=== PATIENT | male | born 1955 | race African-American/Black ===

== ENCOUNTER 2017-03-12 05:04 | Emergency (ER) | payer BC ==
[~2017-03-12] VITALS: Ht 177.8 cm; Wt 81.8 kg
[~2017-03-12 05:04] MED LIST: AMOXICILLIN 8751 TAB PO; CLARITIN 1010 MG/TAB PO; COLACE 100100 MG/CAP PO; MILK OF MA400 MG/5 M PO; NORCO 325 MG-51 TAB PO
[2017-03-12 05:07] VITALS: TEMP 97.9
[2017-03-12] MEDS ORDERED: PRINZIDE 12.5 M1 TA1 PO (05:30)
[2017-03-12] MEDS ORDERED: VIAGRA100 M1 (05:30)
[2017-03-12] MEDS ORDERED: ULTRAM 50MG TAB50 MG PO (06:24)
[2017-03-12 06:34] VITALS: BP 135/95; PULSE 74
== END 2017-03-12 06:35 | disposition home or self-care (01) ==
LOC: COL.ER 05:04
DX: T18.5XXA Foreign body in anus and rectum, initial encounter (principal); I10 Essential (primary) hypertension

== ENCOUNTER 2020-04-27 07:50 | Day surgery (SDC) | payer BC, OTHER ==
[~2020-04-27] VITALS: Ht 152.4 cm; Wt 82.5 kg
[~2020-04-27 07:50] MED LIST changes: +PRINZIDE 12.5 M1 TA1 PO; +ULTRAM 50MG TAB50 MG PO; +VIAGRA100 M1
[2020-04-27] MEDS ORDERED: AVAPRO300 M1 PO (08:07)
[2020-04-27] MEDS ORDERED: LIPITOR 10MG10 MG PO (08:07)
[2020-04-27] MEDS ORDERED: LIPITOR 40MG TA40 MG PO (08:08)
[2020-04-27 09:29] VITALS: BP 126/98; PULSE 64; TEMP 97
--- NOTE | 2020-04-27 09:29 | NUR ---
Pt returns from endo procedure via cart. Pt ambulates with RN assist from cart to recliner. Pt alert and oriented. Pt denies pain or nausea. Monitors on and alarms set. Call light within reach. Pt requests pudding and juice. Report received from SANDER Rooney.
[2020-04-27 09:45] VITALS: BP 138/96; PULSE 57
--- NOTE | 2020-04-27 09:45 | NUR ---
Pt taking food and drink well. No complications voiced.
[2020-04-27 10:00] VITALS: BP 153/91; PULSE 59
[2020-04-27 10:15] VITALS: BP 132/86; PULSE 56
--- NOTE | 2020-04-27 10:26 | NUR ---
Discharge instructions given. Handed to pt are a thank you card, discharge instructions, and a discharge med sheet. All questions answered to his satisfaction.
--- NOTE | 2020-04-27 10:30 | NUR ---
Pt transferred out of hospital via wheelchair and this RN to private vehicle driven by friend.
[2020-04-27 18:56] VITALS: BP 134/94; PULSE 64; TEMP 98.6
== END 2020-04-27 10:30 | disposition home or self-care (01) ==
LOC: SDCO 07:50
DX: Z12.11 Encounter for screening for malignant neoplasm of colon (principal); I10 Essential (primary) hypertension; K57.30 Diverticulosis of large intestine without perforation or abscess without bleeding; E29.1 Testicular hypofunction; Z20.822 Contact with and (suspected) exposure to COVID-19; Z79.899 Other long term (current) drug therapy
CPT/HCPCS: J2704; J3010; J7030

== ENCOUNTER 2021-03-10 17:09 | Emergency (ER) | payer BC ==
[~2021-03-10] VITALS: Ht 175.3 cm; Wt 84.1 kg
[~2021-03-10 17:09] MED LIST changes: +AVAPRO300 M1 PO; +LIPITOR 10MG10 MG PO; +LIPITOR 40MG TA40 MG PO
[2021-03-10 17:18] VITALS: TEMP 98.2
[2021-03-10 17:44] LABS: BASO % 0.2 % (0.0-2.0); EOS # 0.1 K/mm3 (0.0-0.7); EOS % 1.1 % (0.0-4.0); GRAN # 5.4 K/mm3 (1.4-6.5); GRAN % 64.9 % (42.2-75.2); HEMATOCRIT 47.6 % (42.0-52.0); HEMOGLOBIN 15.6 g/dl (13.5-18.0); LYMPH # 1.9 K/mm3 (1.2-3.4); LYMPH % 22.9 % (20.0-51.0); MEAN CELL VOLUME 89 fl (80.0-100.0); MEAN CORPUSCULAR HEMOGLOBIN 29 pg (27-31); MEAN CORPUSCULAR HGB CONC 33 g/dl (33.0-37.0); MEAN PLATELET VOLUME 9.7 fl (7.4-10.4); MONO # 0.9 K/mm3 (0.1-0.6); MONO % 10.5 % (1.7-9.3); PLATELET COUNT 263 K/mm3 (130-400); RED BLOOD COUNT 5.34 M/mm3 (4.20-5.60); REDCELL DISTRIBUTION WIDTH-CV 13.1 % (11.5-14.5)
[2021-03-10 18:06] LABS: ALBUMIN 3.8 gm/dL (3.4-4.8); BILIRUBIN,TOTAL 0.8 mg/dL (0.2-1.2); CALCIUM 8.8 mg/dL (8.4-10.2); CREATININE, serum 1.06 mg/dL (0.72-1.25); POTASSIUM 3.8 mmol/L (3.5-4.5); TOTAL PROTEIN 7.5 gm/dL (6.2-8.1)
[2021-03-10] MEDS ORDERED: AMOXICILLIN 8751 TAB PO (21:04)
[2021-03-10 21:23] VITALS: BP 144/98; PULSE 67
== END 2021-03-10 21:23 | disposition home or self-care (01) ==
LOC: COL.ER 17:09
PROVIDERS: Emergency Medicine
DX: K61.0 Anal abscess (principal); K76.9 Liver disease, unspecified; Z79.899 Other long term (current) drug therapy
CPT/HCPCS: J1885; J2270; Q9967